=== PATIENT | male | born 1980 | race Caucasian/White ===

== ENCOUNTER 2019-09-05 17:52 | Emergency (ER) | payer MEDICAID ==
[~2019-09-05] VITALS: Ht 165.1 cm; Wt 95.7 kg
[2019-09-05 17:56] VITALS: BP_SYST 131
== END 2019-09-05 18:15 | disposition left against medical advice (07) ==
LOC: SED 17:52
DX: R10.9 Unspecified abdominal pain (principal); Z53.21 Procedure and treatment not carried out due to patient leaving prior to being seen by health care provider